=== PATIENT | male | born 1965 | race Caucasian/White ===

== ENCOUNTER 2020-08-05 21:13 | Emergency (ER) | payer OTHER, SELFPAY ==
[2020-08-05 21:14] VITALS: BP 169/81; PULSE 110; RESP 15; TEMP 36.2; O2SAT 98; BMI 44.1
--- NOTE | 2020-08-05 21:31 | EKG12_ITS ---
Test Reason : CP Blood Pressure : / mmHG Vent. Rate : 105 BPM Atrial Rate : 105 BPM P-R Int : 142 ms QRS Dur : 082 ms QT Int : 324 ms P-R-T Axes : 042 021 065 degrees QTc Int : 428 ms Sinus tachycardia Low voltage QRS Borderline ECG Confirmed by ROBERT CERON, DARRION ([id number]), avid editor HAYDEE DYER ([id number]) on 08/09/2020 9:36:46 AM Referred By: RANI Confirmed By:ALANNA JONES MD
[2020-08-05] MEDS: Aspirin 81 MG TAB.CHEW 324 MG PO (21:46)
[2020-08-05] MEDS: Ondansetron 4 MG/2 ML Vial IV (21:46)
[2020-08-05] MEDS: Morphine 4 MG/ML Syringe IV (21:46)
--- NOTE | 2020-08-05 21:50 | RAD_ITS ---
STUDY: X-RAY CHEST REASON FOR EXAM: Male, 54 years old. chest pain TECHNIQUE: Single AP portable view of the chest. COMPARISON: None. FINDINGS: The lungs are clear and expanded. There is no demonstrated pleural abnormality. Normal size heart. Normal mediastinum and kenna. Normal visualized pulmonary arteries. Normal visualized aortic arch and descending thoracic aorta. Normal visualized thoracic spine. Normal visualized ribs, clavicles, and shoulders. There is no demonstrated abnormality of the visualized soft tissue structures of the upper abdomen. RAD/Chest 1 View (Portable) IMPRESSION: Normal x-ray examination of the chest. Electronically Signed: Sagar Watkins DO at 22:24 EDT Tel , Service support ,
[2020-08-05 21:53] LABS: Absolute Lymphocyte Count 1.56 X10^3/uL (0.83-4.51); Absolute Neutrophil Count 10.3 X10^3/uL (2.0-7.7); Basophil# 0.08 X10^3/uL; Basophil% 0.6 % (0-1); Eosinophil# 0.26 X10^3/uL; Eosinophils% 1.9 % (0-5); Hematocrit 46.1 % (40-54); Hemoglobin 15.6 g/dL (13.0-16.5); Lymphocyte # 1.56 X10^3/ul (0.83-4.51); Lymphocyte % 11.6 % (19-41); Mean Corp Hgb Conc 33.8 g/dL (32-36); Mean Corpuscular Hgb 30.4 pg (27.0-32.0); Mean Corpuscular Volume 89.7 fL (80-94); Mean Platelet Vol. 9.3 fl (6.2-12.0); Monocyte# 1.21 X10^3/uL; NRBC Flagged by Analyzer 0 % (0-5); Neutrophil # 10.26 X10^3/uL (2.7-7.7); Neutrophil % 76.5 % (47-70); Platelet Count 264 K/mm3 (150-450); RBC Distribution Width CV 12.6 % (11.6-14.6); RBC Distribution Width SD 41.4 fl (35.1-43.9); Red Blood Count 5.14 M/mm3 (4.6-6.2); White Blood Count 13.4 K/mm3 (4.4-11.0)
[2020-08-05 22:03] LABS: Anion Gap 6 (5-15); BUN 15 mg/dL (7-18); Calcium,Total 8.8 mg/dL (8.5-10.1); Chloride 103 mmol/L (98-107); EST Glomerular Filtration Rate 83 mL/min (>60); Est Glom Filt Rate - Afr Amer 100 mL/min (>60); Estimated Creatinine Clearance 74.31 ml/min; Glucose 169 mg/dL (74-106); Potassium 3.4 mmol/L (3.5-5.1); Sodium Level 136 mmol/L (136-145)
[2020-08-05 22:06] LABS: D-Dimer Quantitative (DVT/PE) < 0.27 FEU/ug/m (0.27-0.49)
[2020-08-05 22:22] VITALS: BP 162/98; PULSE 111
[2020-08-05 22:32] VITALS: BP 152/90; PULSE 105; RESP 18; O2SAT 95
--- NOTE | 2020-08-05 23:19 | ED.VIS.GEN ---
History of Present Illness Chief Complaint: Chest Pain Informant: Patient Narrative: 53-year-old male with history of hypertension presenting with chest pain which he states feels like it is tight. His socks distended was chest. He does not have shortness of breath. He is not had fever or chills. He is not had a cough, myalgias, change in taste or smell. Patient denies any cardiac history. He is never had a stress test. Denies history of DVT/PE and has no risk factors. Past Medical History - Allergies and Home Meds Allergies/Adverse Reactions: Allergies No Known Allergies Allergy (Verified 08/05/20 21:14) Primary Care Physician: Osvaldo Valverde MD [Primary Care Provider] - Prior records reviewed: Yes Past Medical History: - - Hypertension Surgical History: noncontributory Lives: Alone Smoking Status: Former smoker Alcohol: None Drugs: None Review of Systems General: Denies: Chills, Fever, Sweats Eyes: Denies: Visual changes - bilaterally, Diplopia ENT: Denies: Rhinorrhea, Sore throat Cardiovascular: Reports: Chest pain Respiratory: Denies: Dyspnea, Cough, Dyspnea on exertion Gastrointestinal: Denies: Abdominal pain, Nausea, Vomiting, Diarrhea, Melena, Hematochezia Genitourinary: Denies: Dysuria, Hematuria Musculoskeletal: Denies: Back pain, Extremity Pain Skin: Denies: Rash, Wounds Neurological: Denies: Headache, Weakness, Numbness Psych: Denies: Depression, Anxiety, Suicidal thoughts, Suicidal ideations, -, - Physical Exam Vital Signs/Narrative: Vital Signs Temp Pulse Resp BP Pulse Ox 08/05/20 22:32 105 H 18 152/90 H 95 08/05/20 22:22 111 H 162/98 H 08/05/20 21:14 97.2 F L 110 H 15 169/81 H 98 General: Obese, No Acute Distress Head: Normocephalic, Atraumatic Eyes: Perrl, EOMI ENT: Moist mucous membranes, No rhinorrhea Cardiovascular: Regular rate, Regular rhythm Respiratory: No distress, CTA bilaterally Back: Nontender, Normal Inspection Extremities: Nontender, No edema Skin: Normal color, No rash. Negative for: Cyanosis, Diaphoresis Neurological: Alert, Oriented x3, Cranial nerves II-XII grossly intact Psychological: Normal affect, Normal Mood Diagnostic/Tx/Re-eval Clinical Impression(s) from Imaging Studies Chest X-Ray 08/05/20 21:50 IMPRESSION: Normal x-ray examination of the chest. Electronically Signed: Sagar Watkins DO at 22:24 EDT Tel , Service support , Laboratory Data 08/05/20 08/05/20 08/05/20 21:36 21:36 21:36 WBC 13.4 H RBC 5.14 Hgb 15.6 Hct 46.1 MCV 89.7 MCH 30.4 MCHC 33.8 RDW Std Deviation 41.4 RDW Coeff of Stephane 12.6 Plt Count 264 MPV 9.3 Immature Gran % (Auto) 0.400 Neut % (Auto) 76.5 H Lymph % (Auto) 11.6 L [place] % (Auto) 9.0 Eos % (Auto) 1.9 Baso % (Auto) 0.6 Absolute Neuts (auto) 10.3 H Absolute Lymphs (auto) 1.56 Nucleated RBC % 0 D-Dimer Quant (PE/DVT) < 0.27 L Sodium 136 Potassium 3.4 L Chloride 103 Carbon Dioxide 27.0 Anion Gap 6 BUN 15 Creatinine 1.00 Estim Creat Clear Calc 74.31 Est GFR (MDRD) Af Amer 100 Est GFR (MDRD) Non-Af 83 BUN/Creatinine Ratio 15.0 Glucose 169 H Calcium 8.8 Troponin I < 0.015 - Medical Decision Making Patient presenting with chest pain which has had since about 1600 hrs. today. He describes it as tight across his chest. Its been constant. EKG performed on arrival shows a sinus tachycardia 105 bpm without signs of ischemic changes. Chest x-ray is interpreted by myself shows no acute cardiopulmonary process and radiologist agree. CBC shows a leukocytosis of greater than 13,000 however the rest of his lab work is unremarkable. Troponin is negative. D-dimer is negative. Patient was given morphine and Zofran and states he had minimal improvement in pain. He was given Toradol after this. On reevaluation the patient states that when he dorsiflexes his feet bilaterally it causes reproduction of his chest pain. He also states that if he flexes his neck down to his chest his chest pain decreases. He has no focal tenderness to palpation on his chest. Given patient's heart score is 2 I believe he is safe to have a delta troponin EKG and if this is negative he can be discharged home. Patient be signed out to incoming ED physician for monitoring. Impression: 1. Chest pain ED Disposition - Plan for ED Patient: Disposition: Home or Assisted Living Instructions: ED Chest Pain, Uncertain Cause Referrals: Osvaldo Valverde MD [Primary Care Provider] -
[2020-08-06 00:06] VITALS: BP 142/99; PULSE 98; RESP 18; O2SAT 94
[2020-08-06] MEDS: Ketorolac 15 MG/ML Vial IV (00:16)
--- NOTE | 2020-08-06 00:17 | EKG12_ITS ---
Test Reason : REPEAT CP Blood Pressure : / mmHG Vent. Rate : 091 BPM Atrial Rate : 091 BPM P-R Int : 144 ms QRS Dur : 080 ms QT Int : 332 ms P-R-T Axes : 044 014 052 degrees QTc Int : 408 ms Normal sinus rhythm Normal ECG Confirmed by ROBERT CERON, DARRION ([id number]), editor city HAYDEE DYER ([id number]) on 08/09/2020 9:56:28 AM Referred By: RANI Confirmed By:ALANNA JONES MD
[2020-08-06 01:20] VITALS: BP 117/78; PULSE 96; RESP 20; O2SAT 93
== END 2020-08-06 01:21 | disposition home or self-care (01) ==
PROVIDERS: Emergency Provider Student in an Organized Health Care Education/Training Program; PCP Family Medicine
DX: R07.9 Chest pain, unspecified (principal); I10 Essential (primary) hypertension; Z79.899 Other long term (current) drug therapy; Z87.891 Personal history of nicotine dependence
CPT/HCPCS: 71045; 80048; 84484; 85025; 85379; 93005; 96374; 96375; 99285; A4216; J2405

== ENCOUNTER 2020-08-06 09:24 | Emergency (ER) | payer OTHER, SELFPAY ==
[2020-08-05 21:14] VITALS: BMI 44.1
[2020-08-06 09:25] VITALS: BP 132/85; PULSE 88; RESP 19; TEMP 36.8; O2SAT 92; O2SAT 94; BMI 44.1
--- NOTE | 2020-08-06 09:43 | EKG12_ITS ---
Test Reason : CP Blood Pressure : / mmHG Vent. Rate : 090 BPM Atrial Rate : 090 BPM P-R Int : 142 ms QRS Dur : 086 ms QT Int : 334 ms P-R-T Axes : 049 025 064 degrees QTc Int : 408 ms Normal sinus rhythm Low voltage QRS Possible pericarditis Abnormal ECG Confirmed by ROBERT CERON, DARRION ([id number]), editorial clerk HAYDEE DYER ([id number]) on 08/09/2020 9:45:06 AM Referred By: ANAHI Confirmed By:ALANNA JONES MD
--- NOTE | 2020-08-06 09:45 | RAD_ITS ---
STUDY: X-RAY CHEST REASON FOR EXAM: Male, 54 years old. Chest pain TECHNIQUE: AP upright portable view. COMPARISON: 08/05/2020. FINDINGS: Mild pulmonary hypoinflation. Horizontal linear subsegmental atelectases in the right lower lung zone. No suspicious infiltrates. There is no demonstrated pleural abnormality. Normal size heart. Normal mediastinum and kenna. Normal visualized pulmonary arteries. Normal visualized aortic arch and descending thoracic aorta. Normal visualized thoracic spine. Normal visualized ribs, clavicles, and shoulders. There is no demonstrated abnormality of the visualized soft tissue structures of the upper abdomen. RAD/Chest 1 View (Portable) IMPRESSION: Horizontal linear subsegmental atelectases in the right lower lung zone. Electronically Signed: Manuel Sam MD at 10:01 EDT , Service support ,
--- NOTE | 2020-08-06 09:55 | ECHOCS_ITS ---
Reason For Study: CHEST PAIN Procedure This was a 2D Doppler, Color Flow transthoracic echocardiogram. The study was technically difficult. Contrast injection was performed. Exam performed portable in ED. Left Ventricle Normal LV size. The estimated ejection fraction is 55 %. Normal diastology for age. No regional wall motion abnormalities noted. Right Ventricle Normal RV size. Normal systolic function. Atria Normal left atrium. Normal right atrium. No doppler evidence for ASD. Mitral Valve There is no mitral valve stenosis. No mitral valve insufficiency. Tricuspid Valve There is no tricuspid stenosis. Trivial tricuspid valve insufficiency. Pulmonary artery systolic pressure is 30 mmHg. Aortic Valve Trisinus/trileaflet aortic valve. There is no aortic stenosis. No aortic valve insufficiency. Pulmonic Valve There is no pulmonic valvular stenosis. No pulmonic valve insufficiency. Great Vessels Normal aortic root. Pericardium/Pleural No pericardial effusion. Medication Diluted definity 4.5ml given slow IV push to enhance endocardial definition. MMode/2D Measurements & Calculations LVIDd: 4.4 cm IVSd: 0.98 cm LAV(MOD-sp4): 71.9 ml LVIDs: 3.4 cm LVPWd: 0.95 cm RVDd: 3.7 cm FS: 22.5 % LVAd ap4: 24.1 cm2 SV(MOD-sp4): 37.7 ml SV(sp4-el): 37.3 ml LVLd ap4: 6.9 cm EDV(MOD-sp4): 70.1 ml EDV(sp4-el): 71.1 ml LVAs ap4: 16.1 cm2 LVLs ap4: 6.5 cm ESV(MOD-sp4): 32.4 ml ESV(sp4-el): 33.8 ml EF(MOD-sp4): 53.8 % EF(sp4-el): 52.4 % LA A4 area: 22.6 cm2 LA dimension(2D): 3.5 cm RA A4 area: 15.0 cm2 Time Measurements MV dec time: 0.25 sec Doppler Measurements & Calculations MV E max alejo: 83.5 cm/sec Lat Peak E' Alejo: 8.6 cm/sec Med Peak E' Alejo: 8.1 cm/sec MV A max alejo: 79.0 cm/sec E/E' lat: 9.7 E/E' med: 10.3 MV E/A: 1.1 Ao V2 max: 145.9 cm/sec LV V1 max: 93.0 cm/sec TR max alejo: 256.5 cm/sec Ao max P.9 mmHg LV V1 max P.5 mmHg TR max P.3 mmHg ECHO/Echo Complete W/ Contrast Interpretation Summary The estimated ejection fraction is 55 %. No significant valvular abnormalities Ordering Physician: Padilla Novak Referring Physician: NANCY LONG Performed By: Malina Obrien, MARSHA, RVT
[2020-08-06 09:57] LABS: Absolute Lymphocyte Count 1.42 X10^3/uL (0.83-4.51); Absolute Neutrophil Count 8.9 X10^3/uL (2.0-7.7); Basophil# 0.07 X10^3/uL; Basophil% 0.6 % (0-1); Eosinophil# 0.06 X10^3/uL; Eosinophils% 0.5 % (0-5); Hematocrit 44.4 % (40-54); Hemoglobin 15.1 g/dL (13.0-16.5); Lymphocyte # 1.42 X10^3/ul (0.83-4.51); Lymphocyte % 11.5 % (19-41); Mean Corpuscular Volume 88.3 fL (80-94); Mean Platelet Vol. 9.3 fl (6.2-12.0); Monocyte% 15.4 % (0-10); NRBC Flagged by Analyzer 0 % (0-5); Neutrophil # 8.86 X10^3/uL (2.7-7.7); Neutrophil % 71.8 % (47-70); POSITIVE DIFFERENTIAL YES; Platelet Count 255 K/mm3 (150-450); RBC Distribution Width CV 12.8 % (11.6-14.6); RBC Distribution Width SD 41.5 fl (35.1-43.9); Red Blood Count 5.03 M/mm3 (4.6-6.2); White Blood Count 12.3 K/mm3 (4.4-11.0)
[2020-08-06 09:59] LABS: Differential Indicated SCAN CRITERIA MET
[2020-08-06 10:05] VITALS: O2SAT 94
[2020-08-06 10:08] LABS: Anion Gap 4 (5-15); BUN 17 mg/dL (7-18); BUN/Creat Ratio 18.8 RATIO (10-20); Calcium,Total 9.2 mg/dL (8.5-10.1); Chloride 104 mmol/L (98-107); EST Glomerular Filtration Rate 93 mL/min (>60); Est Glom Filt Rate - Afr Amer 113 mL/min (>60); Estimated Creatinine Clearance 82.57 ml/min; Glucose 86 mg/dL (74-106); Potassium 3.9 mmol/L (3.5-5.1); Sodium Level 136 mmol/L (136-145)
[2020-08-06 10:20] LABS: Erythrocyte Sedimentation Rate 20 mm/hr (0-20)
--- NOTE | 2020-08-06 10:42 | CT_ITS ---
STUDY: CTA CHEST REASON FOR EXAM: Male, 54 years old. Dissection/PE RADIATION DOSAGE (If Supplied By Facility): CTDIvol = ( 11.47 ) mGy, DLP = ( 451.20 ) mGycm TECHNIQUE: The examination was performed with the intravenous administration of IV 100mL Isovue-370. Post-processing of the angiographic images was performed, with multiplanar reformation and 3D reconstruction. Individualized dose optimization techniques were used for this CT. COMPARISON: Chest x-ray earlier today FINDINGS: Normal enhancement of the main pulmonary artery and right and left pulmonary arteries. Normal enhancement of the bilateral peripheral pulmonary arteries. There is no demonstrated pulmonary embolism. Normal thoracic aorta and visualized great vessels. There is no demonstrated aortic dissection. Normal heart and pericardium. Normal mediastinum. Normal hilar regions. Normal visualized trachea and bronchi. The lungs are well expanded. Bilateral linear scarring. Normal pleura. Normal chest wall structures. Normal osseous structures. Normal visualized upper abdomen. CT/CTA Chest W/WO Contrast IMPRESSION: Normal CTA chest examination, without a demonstrated pulmonary embolism or arterial dissection. Electronically Signed: Kamlesh Womack MD at 11:37 EDT Tel , Service support ,
[2020-08-06] MEDS: 0.9% Normal Saline 1,000 ML 150 ML IV (11:37)
[2020-08-06] MEDS: Aspirin 81 MG TAB.CHEW 324 MG PO (11:37)
--- NOTE | 2020-08-06 12:01 | ED.DCSUM_ITS ---
- ER Visit Summary Date of Service: 08/06/20 Chief Complaint: Chest pain History of Present Illness: The patient is a [address] Long. He reports he has chest pain that began at 4:00 yesterday afternoon while he was at rest. Said continuous pain that waxes and wanes. He describes it as aching. It is 8 at 10 at worst and 5-10 currently. Is worsened by exertion or bending over to tie his shoes. Is relieved by nothing. He denies any nausea, vomiting, or diaphoresis. Does report that he is mildly short of breath. Reports that he feels at times like his heart is beating quickly. He denies any radiation of his pain. Patient has never had a stress test or heart catheterization. He denies any Covid exposure. He reports that he occasionally wears a mask. He denies any chest pain or change in dyspnea exertion in the past month. Physical Examination: Vitals: Stable. Afebrile. General: Well-nourished and well-developed. Head: Normocephalic atraumatic. Neck: Supple, no lymphadenopathy. No JVD. Nontender. Cardiovascular: Regular rate and rhythm. No murmurs. Respiratory: No respiratory distress. Clear to auscultation bilaterally. Abdominal: Soft, nontender, nondistended, normal bowel sounds. No guarding, rebound, or peritoneal signs. Back: Nontender. Extremities: Nontender, no edema. Skin: Normal color, no rash. Neurologic: Alert and oriented ?3. Cranial nerves II through XII are intact. Normal strength and sensation. Psych: Normal affect. Test Results: EKG is sinus at [address] elevation inferiorly as well as V3 to V6. There is a T wave inversion in aVL. This is unchanged from yesterday except for the T wave inversion in aVL. CBC shows a white count of 12.3 with second neutrophils 72, lymphocytes 12, monocytes 15. Chem-7 is normal. Covid is negative. Troponin is negative. Patient had 2 troponins that were negative last night as well. Sed rate is 20. Clinical Impression(s) from Imaging Studies Chest X-Ray 08/06/20 09:45 IMPRESSION: Horizontal linear subsegmental atelectases in the right lower lung zone. Electronically Signed: Manuel Sam MD at 10:01 EDT , Service support , Echocardiogram 08/06/20 09:55 Interpretation Summary The estimated ejection fraction is 55 %. No significant valvular abnormalities Ordering Physician: Padilla Novak Referring Physician: NANCY LONG Performed By: Malina Obrien, EILEENCS, RVT Chest CTA 08/06/20 10:42 IMPRESSION: Normal CTA chest examination, without a demonstrated pulmonary embolism or arterial dissection. Electronically Signed: Kamlesh Womack MD at 11:37 EDT Tel , Service support , Emergency Department Course and Treatment: The patient was discussed with Dr. Dubon who asked that we obtain an echo. The echo does not show any wall motion abnormality or evidence of myocarditis. If he feels that the EKG is consistent with pericarditis. Treatment Plan: Patient will be discharged with ibuprofen and colchicine. Instructed to follow-up with Dr. Dubon in 1 to 2 weeks for another exam. Return to the emergency department for any worsening symptoms. Disposition: To home in improved and stable condition. Impression: 1. Pericarditis. This note was generated with [employer] dictation software. It may contain incorrect words, spelling, and punctuation that were not noted in review of the chart prior to signing ED Disposition - Plan for ED Patient: Disposition: Home or Assisted Living Instructions: ED Pericarditis Prescriptions: Colchicine 0 mg PO BID #14 capsule Prescription Printed Ibuprofen 400 mg PO TID #21 tablet Prescription Printed Referrals: Daniel Dubon MD [STAFF PHYSICIAN] - 1-2 Weeks
[2020-08-06 12:15] VITALS: BP 130/92; PULSE 89; RESP 18; O2SAT 96
[2020-08-09 11:48] LABS: Pathologist Review Reviewed
== END 2020-08-06 12:16 | disposition home or self-care (01) ==
LOC: ED 10:01
PROVIDERS: Emergency Provider Emergency Medicine; PCP Family Medicine
DX: I31.9 Disease of pericardium, unspecified (principal); I10 Essential (primary) hypertension; Z79.899 Other long term (current) drug therapy; Z82.49 Family history of ischemic heart disease and other diseases of the circulatory system
CPT/HCPCS: 71045; 71275; 80048; 84484; 85025; 85652; 87426; 93005; 93306; 96360; 99285; Q9957; Q9967; A4216; C8929

== ENCOUNTER 2021-09-27 08:25 | Emergency (ER) | payer OTHER, SELFPAY ==
[2021-09-27 08:25] VITALS: BP 150/96; PULSE 90; RESP 20; TEMP 36.8; O2SAT 95; BMI 44.9
--- NOTE | 2021-09-27 08:30 | EKG12_ITS ---
Test Reason : CP Blood Pressure : / mmHG Vent. Rate : 091 BPM Atrial Rate : 091 BPM P-R Int : 144 ms QRS Dur : 082 ms QT Int : 332 ms P-R-T Axes : 046 012 058 degrees QTc Int : 408 ms Normal sinus rhythm Low voltage QRS (Limb Leads) Borderline ECG Confirmed by BRENDA CERON, TAMICA ([id number]), video effects editor HAYDEE DYER ([id number]) on 09/28/2021 10:01:33 AM Referred By: AR Confirmed By:TAMICA GUTIERREZ MD
--- NOTE | 2021-09-27 08:31 | ED.VIS.CHEST ---
HPI History of Present Illness Chief Complaint: Chest Pain Narrative Narrative: 56-year-old male past medical history of hypertension presents with chest pain since 4 AM this morning, approximately 4-1/2 hours ago. He states it awoke him from sleep. He describes a chest pressure and pain in the center of his chest and all across the. It does not radiate to his jaw or arm. He states last year he had an episode of pericarditis and this feels similar, but he denies any recent upper respiratory infection type symptoms. No swelling of his legs. No shortness of breath. No nausea or vomiting or diaphoresis. However, he states that his pain worsens when he tries to take a deep breath at times. No fevers or chills. No cough. No other symptoms. He denies any significant past medical history of coronary artery disease in his family less than age 55. [facility] Medical History Essential hypertension Obesity Pericarditis (08/06/20) Home Medications losartan 50 mg PO DAILY 08/05/20 [History Last Taken Unknown] colchicine 0.6 mg PO BID #28 tab 09/27/21 [Rx Last Taken Unknown] ibuprofen 400 mg PO TID 14 Days #42 tab 09/27/21 [Rx Last Taken Unknown] Allergy/AdvReac Type Severity Reaction Status Date / Time INO Inhibitors AdvReac Intermediate cough Verified 09/27/21 08:31 Family History Mother CAD (coronary artery disease) Myocardial infarction, Onset Age: 70 Hypertension Father Hypertension Prostate cancer Sister Diabetes Grandmother CVA (cerebral vascular accident) CAD (coronary artery disease) Grandfather Alzheimer's disease Surgical History H/O arthroscopic knee surgery Hx of appendectomy Social History Smoking Status: Former smoker ROS ROS ED ROS Narrative Constitutional: No fever, no chills. HEENT: No sore throat. No neck pain. No loss of vision. No rhinorrhea. Cardiovascular: Positive chest pain/pressure. Worse with walking. No palpitations. No pedal edema. Respiratory: No cough, minimal shortness of breath. Abdominal: No abdominal pain. No nausea. No vomiting. Genitourinary: No dysuria. No hematuria. Musculoskeletal: No myalgias. No arthralgias. Neurologic: No headaches. No dizziness. No lightheadedness. Skin: No rash. No change in color. Psychiatric: No depression. No anxiety. EXAM Physical Exam Narrative Exam Narrative: Afebrile. Vital signs noted. HEENT: Normocephalic. Atraumatic. PERRL, EOMI. Neck soft and supple. No point tenderness or step off. Cardiovascular: Regular rate and rhythm. No murmurs, rubs, or gallops appreciated. Respiratory: No tachypnea. Lungs clear to auscultation bilaterally. Gastrointestinal: Abdomen soft, nontender, with normoactive bowel sounds. No rebound or guarding. Neurological: Awake. Alert. Nonfocal, nonlateralizing. Skin: No rash. Normal color. No pallor. Musculoskeletal: No pedal edema. Full range of motion extremities. Const Vital Signs: 09/27/21 08:25 09/27/21 08:38 09/27/21 10:19 Temperature 98.2 F Temperature Source Temporal Pulse Rate 90 84 Respiratory Rate 20 H 18 Blood Pressure 150/96 H 140/85 H Blood Pressure Mean 114 103 Pulse Ox 95 93 94 Oxygen Delivery Method Room Air Room Air 09/27/21 10:31 Temperature Temperature Source Pulse Rate 82 Respiratory Rate 20 H Blood Pressure 140/85 H Blood Pressure Mean Pulse Ox 95 Oxygen Delivery Method Heart Score History: Slightly/Non-Suspicious ECG: Normal Age: >45 - <65 years Risk Factors: 1 or 2 Risk Factors Score: 2 MDM MDM MDM Narrative Medical decision making narrative: Chest pain work-up was pursued. EKG was interpreted by myself and demonstrates normal sinus rhythm at 91 bpm without ectopy or acute ST changes. There is questionable [place] depression diffusely. ESR will be obtained. Chest x-ray read by myself shows no acute process, no pneumonia or pneumothorax. WBC count slightly elevated 12.0, hemoglobin stable at 16, platelet count normal at 291. D-dimer normal/negative at 0.30. ESR negative at 14. Sodium slightly low at 135. High-sensitivity troponin less than 3. This is a 0-hour troponin that has been greater than a 3-hour duration of chest pain. At this point in time, patient was discussed with Dr. Tejada with cardiology. He will be treated as pericarditis again and was placed on colchicine and ibuprofen for the next 2 weeks. Patient is to follow-up with cardiology. I feel he can be discharged safely home with follow-up. Lab Data Attestation: I reviewed the patient's lab results. Labs: Laboratory Results - last 24 hr 09/27/21 09/27/21 09/27/21 08:35 08:35 08:35 WBC 12.0 H RBC 5.31 Hgb 16.0 Hct 46.0 MCV 86.6 MCH 30.1 MCHC 34.8 RDW Std Deviation 39.1 RDW Coeff of Stephane 12.3 Plt Count 291 MPV 9.2 Immature Gran % (Auto) 0.300 Neut % (Auto) 78.0 H Lymph % (Auto) 11.2 L [place] % (Auto) 8.8 Eos % (Auto) 1.1 Baso % (Auto) 0.6 Absolute Neuts (auto) 9.4 H Absolute Lymphs (auto) 1.35 Nucleated RBC % 0 ESR 14 D-Dimer Quant (PE/DVT) 0.30 Sodium 135 L Potassium 4.0 Chloride 102 Carbon Dioxide 26.0 Anion Gap 7 BUN 16 Creatinine 0.92 Estim Creat Clear Calc 78.92 Est GFR (MDRD) Af Amer 110 Est GFR (MDRD) Non-Af 91 BUN/Creatinine Ratio 17.4 Glucose 123 H Calcium 9.5 Troponin I High Sens < 3 L Radiography Diagnostic Testing: Clinical Impression(s) from Imaging Studies Chest X-Ray 09/27/21 08:40 IMPRESSION: Mild degree of increased markings at the left lung base suggestive of atelectasis. Electronically Signed: Martin Valencia MD at 9:14 EDT , Discharge Plan Triage Chief Complaint: Chest Pain ED Provider: Manuel Corey Dx/Rx/DC Orders Clinical Impression: Chest pain, Pericarditis Instructions: ED Chest Pain, Uncertain Cause, ED Pericarditis Prescriptions: New colchicine 0.6 mg tablet 0.6 mg PO BID Qty: 28 RF: 0 ibuprofen 400 mg tablet 400 mg PO TID 14 Days Qty: 42 RF: 0 No Action losartan 25 MG tablet 50 mg PO DAILY RF: 0 Primary Care Provider: Osvaldo Valverde Referrals: Jose Tejada MD [STAFF PHYSICIAN] - 1-2 Weeks Osvaldo Valverde MD [Primary Care Provider] - Disposition Disposition: Home, Self Care Discharge Date/Time: 09/27/21 10:33
[2021-09-27] MEDS: Aspirin 81 MG TAB.CHEW 324 MG PO (08:37)
[2021-09-27 08:38] VITALS: O2SAT 93
--- NOTE | 2021-09-27 08:40 | RAD_ITS ---
STUDY: X-RAY CHEST REASON FOR EXAM: Male, 56 years old. Chest pain TECHNIQUE: Single AP portable view of the chest. COMPARISON: Comparison is made with prior study 08/06/2020. FINDINGS: EKG electrodes are seen. Mild degree of increased markings at the left lung base suggestive of underlying atelectasis. There is no demonstrated pleural abnormality. Normal size heart. Normal mediastinum and kenna. Normal visualized pulmonary arteries. Normal visualized aortic arch and descending thoracic aorta. There are diffuse degenerative changes of the visualized thoracic spine. Normal visualized ribs, clavicles, and shoulders. There is no demonstrated abnormality of the visualized soft tissue structures of the upper abdomen. RAD/Chest 1 View (Portable) IMPRESSION: Mild degree of increased markings at the left lung base suggestive of atelectasis. Electronically Signed: Martin Valencia MD at 9:14 EDT ,
[2021-09-27 08:51] LABS: Erythrocyte Sedimentation Rate 14 mm/hr (0-20)
[2021-09-27 08:53] LABS: Absolute Lymphocyte Count 1.35 X10^3/uL (0.83-4.51); Absolute Neutrophil Count 9.4 X10^3/uL (2.0-7.7); Basophil# 0.07 X10^3/uL; Basophil% 0.6 % (0-1); Eosinophil# 0.13 X10^3/uL; Eosinophils% 1.1 % (0-5); Lymphocyte # 1.35 X10^3/ul (0.83-4.51); Lymphocyte % 11.2 % (19-41); Mean Corp Hgb Conc 34.8 g/dL (32-36); Mean Corpuscular Hgb 30.1 pg (27.0-32.0); Mean Corpuscular Volume 86.6 fL (80-94); Mean Platelet Vol. 9.2 fl (6.2-12.0); Monocyte# 1.06 X10^3/uL; Monocyte% 8.8 % (0-10); NRBC Flagged by Analyzer 0 % (0-5); Neutrophil # 9.38 X10^3/uL (2.7-7.7); Platelet Count 291 K/mm3 (150-450); RBC Distribution Width CV 12.3 % (11.6-14.6); RBC Distribution Width SD 39.1 fl (35.1-43.9); Red Blood Count 5.31 M/mm3 (4.6-6.2)
[2021-09-27 09:28] LABS: Anion Gap 7 (5-15); BUN 16 mg/dL (7-18); BUN/Creat Ratio 17.4 RATIO (10-20); Calcium,Total 9.5 mg/dL (8.5-10.1); Chloride 102 mmol/L (98-107); Creatinine, Serum 0.92 mg/dL (0.70-1.30); EST Glomerular Filtration Rate 91 mL/min (>60); Est Glom Filt Rate - Afr Amer 110 mL/min (>60); Estimated Creatinine Clearance 78.92 ml/min; Glucose 123 mg/dL (74-106); Sodium Level 135 mmol/L (136-145); Troponin-I HS (w/2H Reflex) < 3 pg/mL (3.0-78.0)
[2021-09-27 10:19] VITALS: BP 140/85; PULSE 84; RESP 18; O2SAT 94
[2021-09-27 10:31] VITALS: BP 140/85; PULSE 82; RESP 20; O2SAT 95
[2021-09-27 10:37] LABS: Reflex Troponin-HS? (from REC) Y
== END 2021-09-27 10:33 | disposition home or self-care (01) ==
PROVIDERS: Emergency Provider Emergency Medicine; PCP Family Medicine; Visit Provider Emergency Medicine
DX: I31.9 Disease of pericardium, unspecified (principal); Z68.41 Body mass index [BMI] 40.0-44.9, adult; I10 Essential (primary) hypertension; E66.9 Obesity, unspecified; Z79.899 Other long term (current) drug therapy; Z87.891 Personal history of nicotine dependence; Z82.49 Family history of ischemic heart disease and other diseases of the circulatory system
CPT/HCPCS: 71045; 80048; 84484; 85025; 85379; 85652; 93005; 99284; A4216